=== PATIENT | female | born 1955 | race Caucasian/White ===

== ENCOUNTER 2017-11-29 05:42 | Day surgery (SDC) | payer OTHER ==
[2017-11-29] MEDS ORDERED: ROPIVACAINE 0.2% 80 MG, EPINEPHrine 0.2 MG, KETOROLAC TROMETHAMINE 30 MG in SYRINGE 0 ML IU ONE (06:00)
[2017-11-29] MEDS ORDERED: ACETAMINOPHEN 500 MG TAB PO ONE (06:05)
[2017-11-29] MEDS ORDERED: LR 1,000 ML IV SCH (06:05)
[2017-11-29] MEDS ORDERED: LR 1,000 ML IV ONE (06:16)
[2017-11-29] MEDS ORDERED: ceFAZolin 1 GM/5 ML SYR ONE (06:43)
--- NOTE | 2017-11-29 06:43 | PDANEPAE ---
ANE History of Present Illness 62 year old female for right gluteus medius repair. Patient with PMHx of Asthma (w/ URI), excess CSF (w/ shunt), GERD, IBS and Depression. Patient with an extensive list of medication allergies. ANE Past Medical History - Cardiovascular History Hx Hypertension: No Hx Arrhythmias: No Hx Chest Pain: No Hx Coronary Artery / Peripheral Vascular Disease: No Hx CHF / Valvular Disease: No Hx Palpitations: No - Pulmonary History Hx COPD: No Hx Asthma/Reactive Airway Disease: Yes Hx Recent Upper Respiratory Infection: No Hx Oxygen in Use at Home: No Hx Sleep Apnea: No Sleep Apnea Screening Result - Last Documented: Negative Pulmonary History Comment: Occ. asthma-inhaler. With URIs. - Neurologic History Hx Cerebrovascular Accident: No Hx Seizures: No Hx Dementia: No Neurologic History Comment: Excessive CSF fluid- LUMBAR PERITANEAL SHUNT. - Endocrine History Hx Diabetes: No Hypothyroid: No Hyperthyroid: No Obesity: mild - Renal History Hx Renal Disorders: Yes Renal History Comment: MILD - Liver History Hx Hepatic Disorders: No - Neurological & Psychiatric Hx Hx Neurological and Psychiatric Disorders: Yes Neurological / Psychiatric History Comment: depression-med. - Cancer History Hx Cancer: No - Congenital Disorder History Hx Congenital Disorders: No - GI History Hx Gastrointestinal Disorders: Yes Gastrointestinal History Comment: GERD-med. IBS-diet controlled. - Other Health History Other Health History: deviated nasal surg-continued problems. Has nasal button.Chronic fibromyalgia, osteoarthritis, gout. Undifferentiated conective tissue disease. - Chronic Pain History Chronic Pain: Yes (R HIP AND BACK) - Surgical History Prior Surgeries: 2012-abdomanoplasty&breast list. 2012-bone graft in jaw. 2010- R knee scope twice. 2008-remove R ovary. 1993-lumbar shunt for excessive CSF fluid. 2004-L cataract. 2002-GB surg. 1995-appi. 1992-hysterectomy.1981-TMJ surg. Several D&Cs. 07/28/17 GLUTEOUS REPAIR ANE Review of Systems Review of Systems: - Exercise capacity Exercise capacity: >=4 METS METS (RN): 4 METS ANE Patient History - Allergies Allergies/Adverse Reactions: vancomycin Allergy (Intermediate, Verified 11/27/17 13:33) Vomiting adhesive [Adhesive] Allergy (Verified 11/29/17 06:33) Cephalosporins Allergy (Verified 11/29/17 06:33) Hives ciprofloxacin [From Cipro] Allergy (Verified 11/29/17 06:33) SERUM SICKNESS ciprofloxacin HCl [From Cipro] Allergy (Verified 11/29/17 06:33) SERUM SICKNESS imipenem [Imipenem] Allergy (Verified 11/29/17 06:33) omeprazole [From Prilosec] Allergy (Verified 11/29/17 06:33) Rash omeprazole magnesium [From Prilosec] Allergy (Verified 11/29/17 06:33) Rash Penicillins Allergy (Verified 11/29/17 06:33) Rash propoxyphene HCl [From Darvon] Allergy (Verified 11/29/17 06:33) Rash Sulfa (Sulfonamide Antibiotics) Allergy (Verified 11/29/17 06:33) Rash sumatriptan [From Imitrex] Allergy (Verified 11/29/17 06:33) HEART SPASM sumatriptan succinate [From Imitrex] Allergy (Verified 11/29/17 06:33) HEART SPASM tetracycline [Tetracycline] Allergy (Verified 11/29/17 06:33) Hives Tricyclic Compounds Allergy (Verified 11/29/17 06:33) Hives TH IAZIDES Allergy (Uncoded 11/29/17 06:33) - Home Medications Home Medications: Albuterol [Ventolin Hfa Inhaler] 1 - 2 puffs IH Q4 PRN 06/09/11 [Last Taken 18] Hyoscyamine Sulfate [Levsin, Hyomax-Sl 0.125 mg (*)] 0.25 mg PO TID 06/09/11 [ Last Taken 11/28/17 17:00] Orphenadrine Citrate [Norflex] 100 mg PO BID 06/09/11 [Last Taken 11/29/17 05:00 ] Pantoprazole Sodium [Protonix] 40 mg PO DAILY 06/09/11 [Last Taken 11/28/17 22: 00] Pregabalin [Lyrica] 225 mg PO HS 06/09/11 [Last Taken 11/28/17 22:00] Topiramate [Topamax] 100 mg PO HS 06/09/11 [Last Taken 11/28/17 22:00] buPROPion SR [Wellbutrin] 150 mg PO BID 06/09/11 [Last Taken 11/29/17 05:00] C/E/Zn/Cu/OM3/DHA/EPA/LUT/ZEAX [Preservision Areds 2 Softgel] 1 each PO DAILY [Last Taken 11/22/17] Cetirizine [ZyrTEC 10 mg (*)] 10 mg PO BID 11/27/17 [Last Taken 11/29/17 05:00] Cholecalciferol Vit D3 [Vitamin D3 2000 units tab (OTC)] 4,000 units PO DAILY [Last Taken 11/22/17] Colchicine [Colcrys] 0.6 mg PO DAILY 11/27/17 [Last Taken 11/28/17 22:00] Denosumab [Prolia] 60 mg SC .[id number] 11/27/17 [Last Taken Unknown] FLUoxetine [Prozac 20 MG (*)] 20 mg PO DAILY 11/27/17 [Last Taken 11/29/17 05:00 ] Hyoscyamine Sulfate [Levsin, Hyomax-Sl 0.125 mg (*)] 0.125 mg PO DAILY PRN 11/27 [Last Taken 11/22/17] Metoclopramide [Reglan 10 mg tab (*)] 10 mg PO AC 11/27/17 [Last Taken 11/28/17 17:00] Multivitamins [Multivitamin (*)] 1 each PO DAILY 11/27/17 [Last Taken 11/22/17] Sutherland-3 Fatty Acids [Fish Oil 1000 mg (*)] 4,000 mg PO HS 11/27/17 [Last Taken 11/22/17] Orencia Dose Unknown 1 ea IV Q30D 11/27/17 [Last Taken 11/15/17] Ospemifene [Osphena] 60 mg PO DAILY 11/27/17 [Last Taken 11/29/17 05:00] Ranitidine HCl [Zantac] 150 mg PO DAILY 11/27/17 [Last Taken 11/28/17 22:00] Saccharomyces Boulardii [FLORASTOR] 250 mg PO BID 11/27/17 [Last Taken 11/22/17] Topiramate [Topamax 25MG (*)] 50 mg PO DAILY 11/27/17 [Last Taken 11/29/17 05:00 ] Zolpidem Tartrate [Ambien 5MG (*)] 10 mg PO HS 11/27/17 [Last Taken 11/28/17 22: 00] hydrOXYzine HCL [hydrOXYzine HCL (RX)] 25 mg PO DAILY 11/27/17 [Last Taken 11/28 22:00] oxyCODONE IR [Oxycodone Ir (*)] 5 mg PO Q4 PRN 11/27/17 [Last Taken 10/04/17] valACYclovir [Valtrex (*)] 500 mg PO DAILY 11/27/17 [Last Taken 11/29/17 05:00] - NPO status NPO Status: no food or drink >8 hours NPO Since - Liquids (Date): 11/28/17 NPO Since - Liquids (Time): 23:30 NPO Since - Solids (Date): 11/28/17 NPO Since - Solids (Time): 21:30 - Anes Hx Anes Hx: no prior problems - Smoking Hx Smoking Status: Former smoker Marijuana use: No - Alcohol Use Alcohol Use: Rarely - Family Anes Hx Family Anes Hx: neg - N/A Family Hx Anesthesia Complications: no ANE Labs/Vital Signs - Vital Signs Vital Signs: reviewed preoperatively; see RN documention for details Blood Pressure: 111/65 Heart Rate: 69 Respiratory Rate: 16 O2 Sat (%): 93 Height: 162.56 cm Weight: 85.729 kg ANE Physical Exam - Airway Neck exam: increased neck circumference, short neck Mallampati Score: Class 4 Mouth exam: small mouth opening, abnormal chin Mouth image: 1 - Bridge - Pulmonary Pulmonary: no respiratory distress - Cardiovascular Cardiovascular: regular rate and rhythym - ASA Status ASA Status: III ANE Anesthesia Plan Anesthesia Plan: general endotracheal anesthesia Total IV Anesthesia: No
[2017-11-29] MEDS ORDERED: LINEZOLID 600 MG TAB PO ONE (07:00)
[2017-11-29] MEDS ORDERED: fentaNYL 100 MCG/2 ML INJ ONE (07:03)
[2017-11-29] MEDS ORDERED: PROPOFOL 200 MG/20 ML VIAL ONE (07:03)
[2017-11-29] MEDS ORDERED: LIDOCAINE 2% 5 ML SDV ONE (07:03)
[2017-11-29] MEDS ORDERED: ROCURONIUM 50 MG/5 ML VIAL ONE ×2 (07:03→08:55)
--- NOTE | 2017-11-29 07:05 | PDHPUP ---
History & Physical Update H&P update statement: This history and physical update is based on an assessment of the patient which was completed after admission or registration (within 24 hours), but prior to the surgery/procedure. H&P update: H&P reviewed & patient examined, no change in patient's condition since H&P completed
[2017-11-29] MEDS ORDERED: DEXAMETHASONE 4 MG/ML VIAL ONE (07:25)
[2017-11-29] MEDS ORDERED: ONDANSETRON 4 MG/2 ML VIAL ONE (07:26)
[2017-11-29] MEDS ORDERED: PHENYLEPHRINE HCL 100 MCG/ML SYR ONE (07:26)
[2017-11-29] MEDS ORDERED: BUPIVACAINE 0.5% 30 ML SDV ONE (07:39)
[2017-11-29] MEDS ORDERED: PHENYLEPHRINE HCL 100 MCG/ML SYR IVP PRN (07:57)
[2017-11-29] MEDS ORDERED: DEXAMETHASONE 4 MG/ML VIAL IVP PRN (07:57)
[2017-11-29] MEDS ORDERED: epHEDrine SULFATE 10 MG/ML SYR IVP PRN (07:57)
[2017-11-29] MEDS ORDERED: NALOXONE HCL 0.4 MG/ML INJ IVP PRN (07:57)
[2017-11-29] MEDS ORDERED: oxyCODONE IR 5 MG TAB PO PRN (07:57)
[2017-11-29] MEDS ORDERED: HYDROmorphONE/DILAUDID 2 MG/ML INJ IVP PRN (07:57)
[2017-11-29] MEDS ORDERED: ACETAMINOPHEN 500 MG TAB PO PRN (07:57)
[2017-11-29] MEDS ORDERED: fentaNYL 100 MCG/2 ML INJ IVP PRN (07:57)
[2017-11-29] MEDS ORDERED: LR 500 ML IV PRN (07:57)
[2017-11-29] MEDS ORDERED: ONDANSETRON 4 MG/2 ML VIAL IVP PRN (07:57)
[2017-11-29] MEDS ORDERED: SUGAMMADEX SODIUM 200 MG/2 ML VIAL IVP ONE (09:06)
--- NOTE | 2017-11-29 09:59 | POSTOPPROG ---
Post Op Note Date of Operation: 11/29/17 Surgeon: Gilberto Lincoln Fly Finisher: Sj Ziegler MD Anesthesiologist: Brandan Rea MD Anesthesia: GET(General Endotracheal) Pre-op Diagnosis: Right recurrent gluteus medius/minimus tear, recalcitrant troch bursitis Post-op Diagnosis: same Procedure: Right open revision glute med/min repair with allograft augmentation Inf/Abcess present in the surg proc area at time of surgery?: No EBL: 50-100
[2017-11-29] MEDS ORDERED: HYDROCODONE/APAP 5/325 TAB ONE ×2 (10:28→11:05)
[2017-11-29] MEDS: HYDROCODONE/APAP 5/325 TAB PO PRN ×2 (10:34→11:06)
--- NOTE | 2017-11-29 10:41 | GOP ---
[f rep st] OPERATIVE REPORT DATE OF OPERATION: 11/29/2017 SURGEON: Gilberto Lincoln MD CRAYON SORTING MACHINE FEEDER: Sylvester Ziegler MD. Shop Teacher was required for the procedure due to the complexity of the c ase and the patient's condition for positioning, prepping, draping, retraction, suction and closure. ANESTHESIA: General. PREOPERATIVE DIAGNOSIS: Right hip recurrent gluteus medius and minimus tear and recalcitrant trochan teric bursitis. POSTOPERATIVE DIAGNOSIS: Right hip recurrent gluteus medius and minimus tear and recalcitrant trocha nteric bursitis. PROCEDURE PERFORMED: An open revision gluteus medius and minimus repair with allograft augmentation and open trochanteric bursectomy. FINDINGS: The gluteus medius was found to have a full-thickness tear of the anterior portion with re traction as well as with minimal retraction involving the anterior half of the gluteus medius. Glute us minimus was also involved. Posterior half of the gluteus medius had a partial undersurface tearin g. There was significant amount of scarred trochanteric bursa with thickening. SPECIMENS: None. ESTIMATED BLOOD LOSS: 100 cc. INDICATIONS: Patient has a recurrent retracted full-thickness gluteus medius and minimus tear with p eritrochanteric pain and bursitis symptoms as well as weakness of the abductor mechanism causing disa bility and limp. Patient failed to improve with conservative measures. MRI confirmed the tear. Mariely brown, therefore, would like to proceed with repair. She verbalized the understanding of the risks an d benefits of the procedure and signed the consent prior to the procedure. DESCRIPTION OF PROCEDURE: Patient was seen in the holding area and the operative site was signed. P atient taken to the operating room. After smooth induction of general anesthesia, she was placed in the left lateral decubitus position on a pegboard and an axillary roll of the hip, was prepped and dr aped in the usual sterile fashion. Operative site was confirmed by signature. Operative time-out pe rformed. Allergies reviewed. She was provided oral linezolid in the PACU due to several antibiotic allergies. An incision was made over Yusuf interval and carried down through the subcutaneous tissue to identif y the fascia aliya which was also incised in Yusuf interval. Trochanteric bursectomy was performed w ith a rongeur and Bovie, removing inflamed tissue and exposing the gluteus medius and minimus. The gluteus medius was well exposed. Scar tissue from around the tendon tear was debrided sharply. The area of the greater trochanter was decorticated with a Faction Skis TPS bur in order to create a bleed ing bed of bone for healing. Three 4.75 mm SwiveLocks with suture tape were placed into the proximal aspect of the greater trochanter, creating a suture bridge type of construct, preparing the gluteus medius and minimus in the proximal row. The FiberWire sutures from the SwiveLocks were brought throu gh the proximal aspect of the tendon and muscle belly with the tapes placed more proximal to act as a rip stop. The more anterior 2 anchors were used to incorporate the ArthroFLEX graft into the repair . All FiberWire sutures were tied down to create the proximal row fixation and then FiberWires and F iberTapes were crisscrossed over the tendon and graft and anchored distally with 2 SwiveLocks. [place] lent repair construct was created in this fashion. We reinforced the graft with #2 Vicryl. The wound was then irrigated with sterile solution and closed in layers with #2 Quill in the fascia l eliel, 0 Quill in the deep subcutaneous fat, and 3-0 Quill in the dermis. Dermabond, Steri-Strips, and a sterile Silver dressing were applied. Hip was placed into a hip brace with an abduction pillow. Patient was safely awakened, extubated, and taken to the recovery room in stable condition. At the e nd of the case, all surgical counts were correct. DRAINS: None. COMPLICATIONS: None. IMPLANTS: Arthrex 4.75 mm SwiveLocks x5 and Arthrex ArthroFLEX dermal graft. /[id number]/MODL
[2017-11-29 12:35] VITALS: BP 95/64
--- NOTE | 2017-11-29 12:40 | POSTANESTH ---
Post Anesthetic Evaluation Cardiovascular Status: Normal, Stable, Similar to Pre-Op Cond Respiratory Status: Normal, Stable, Similar to Pre-op Cond. Level of Consciousness/Mental Status: Can Participate in Eval, Alert and Oriented Pain Control: Adequate, Prn Tx Ordered Nausea/Vomiting Control: Adequate, Prn Tx Ordered Complications Possibly Related to Anesthesia: None Noted
== END 2017-11-29 12:33 | disposition home or self-care (01) ==
LOC: FSGY 05:42
PROVIDERS: ATTEND Orthopaedic Surgery
DX: M66.851 Spontaneous rupture of other tendons, right thigh (principal)
CPT/HCPCS: C1713; J0171; J1100; J1885; J2270; J2370; J2405; J2704; J2795; J3010; Q4125